=== PATIENT | female | born 1985 | race Caucasian/White ===

== ENCOUNTER 2019-01-01 08:32 | Outpatient (CLI) | payer SELFPAY ==
--- NOTE | 2019-01-02 09:43 | Ultrasound Report ---
Reason: TEST POSITIVE Procedure Date: 01/01/2019 Accession Number: [id number] / [id number] Procedure: US - OB First Trimester CPT Code: FULL RESULT: EXAM: FIRST TRIMESTER OBSTETRIC ULTRASOUND (Less than 11 weeks) EXAM DATE: 01/01/2019 08:52 AM. CLINICAL HISTORY: test positive. LMP: Unknown. COMPARISONS: None. TECHNIQUE: Transabdominal and transvaginal ultrasound examination with static image documentation. CLINICAL DATES: Unknown LMP. ASSESSMENT: Gestational Sac: Single intrauterine. Normal-appearing yolk sac and embryo noted. Indeterminate lobular hyperechoic 1.1 x 1 x 1.3 cm structure noted in the right aspect of the gestational sac separate from the embryo and yolk sac. No internal vascularity noted. Embryo: CRL (crown-rump length) 3.9 mm = 6 weeks 0 days with an JOAQUIN of 08/27/2019. Cardiac activity: 121 beats per minute. Yolk sac: 3.6 mm. Amniotic fluid: Not accurately assessed at this gestational age. Early placenta: Not visible at this gestational age. Other: Perigestational hemorrhage measuring 1.8 x 0.6 x 0.7 cm is noted inferior and to the left of the gestational sac. MATERNAL STRUCTURES: Uterus: Anteverted. Unremarkable. Cervix: Closed. Right Ovary/Adnexa: The ovary measures 3.3 x 1.4 x 1.6 cm, volume 4 cc. Unremarkable. Left Ovary/Adnexa: The ovary measures 3.3 x 4 1 8 x 3.4 cm, volume 13 cc. Probable left ovarian corpus luteum best seen on transabdominal imaging. Free Fluid: None. Other: None. IMPRESSION: 1. Single viable intrauterine at EGA 6 weeks 0 days with JOAQUIN 08/27/2019 based on crown-rump length. Unknown LMP. 2. Assigned dating is JOAQUIN 08/27/2019 based on current ultrasound. 3. Perigestational hemorrhage as described above. Avascular echogenic lobular structure in the gestational sac separate from the embryo and yolk sac measuring 1.1 x 1 x 1.3 cm is indeterminate. Recommend close attention to this region on subsequent ultrasound. 4. Probable left ovarian corpus luteum. Otherwise, both ovaries and adnexa are normal. RADIA
== END 2019-01-01 08:33 | disposition home or self-care (01) ==
LOC: DI 08:32
PROVIDERS: ATTEND Obstetrics & Gynecology
DX: Z32.01 Encounter for pregnancy test, result positive (principal); O20.9 Hemorrhage in early pregnancy, unspecified; Z3A.01 Less than 8 weeks gestation of pregnancy
CPT/HCPCS: 76801

== ENCOUNTER 2024-01-06 09:39 | Outpatient (CLI) | payer OTHER ==
--- NOTE | 2024-01-07 21:23 | XRAY Report ---
PROCEDURE: Lumbar Spine 2-3V INDICATIONS: SACROILIAC PAIN TECHNIQUE: 3 views of the lumbar spine were acquired. COMPARISON: None. FINDINGS: Surgical change: None. Bones: 5 [id number] vertebrae are present. There is normal bony alignment. No vertebral body co mpression fractures. No suspicious bony lesions. Soft tissues: Overlying bowel gas pattern is normal. No suspicious soft tissue calcifications. IMPRESSION: No significant osseous abnormality. Reviewed by: Tr Paul MD on 01/07/2024 9:21 PM PDT Approved by: Tr Paul MD on 01/07/2024 9:21 PM PDT Station ID: [email or web address]
--- NOTE | 2024-01-07 21:32 | XRAY Report ---
PROCEDURE: Sacrum/Coccyx INDICATIONS: Low back pain TECHNIQUE: 3 views of the sacrum and coccyx acquired. COMPARISON: Same date lumbar spine radiographs. FINDINGS: Bones: No fractures or dislocations. No suspicious bony lesions. Soft tissues: Visualized bowel gas pattern is normal. No suspicious soft tissue densities. IMPRESSION: No acute bony abnormality. Reviewed by: Tr Paul MD on 01/07/2024 9:31 PM PDT Approved by: Tr Paul MD on 01/07/2024 9:31 PM PDT Station ID: [email or web address]
== END 2024-01-06 09:40 | disposition home or self-care (01) ==
LOC: DI 09:39
PROVIDERS: ATTEND Emergency Medicine
DX: M53.3 Sacrococcygeal disorders, not elsewhere classified (principal)